=== PATIENT | male | born 1985 | race African-American/Black ===

== ENCOUNTER 2017-04-01 16:12 | Emergency (ER) | payer SELFPAY ==
[2017-04-01 16:24] VITALS: BP 126/76; PULSE 81; TEMP 98.3; BMI 25.0
[2017-04-01] MEDS ORDERED: NAPROXEN 250 MG TABLET (FP) PO ONE (16:50)
--- NOTE | 2017-04-01 16:53 | PDOC ---
History of Present Illness - General Chief Complaint: Back Pain Stated Complaint: BACK PAIN Time Seen by Provider: 04/01/17 16:32 - History of Present Illness Initial Comments: 04/01/17 16:47 CHIEF COMPLAINT: back pain HISTORY OF PRESENT ILLNESS: 32 yo M with no PMH presents to [facility] with "back spasm." Patient reports that 2 days ago he woke up and felt muscle "stiffness" to his lower back and "couldn't really move very well." He denies any loss of bowel or bladder function, loss of sensation to extremities, or any other symptoms. 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 SURGICAL HISTORY: Denies ALLERGIES: No known drug allergies REVIEW OF SYSTEMS General/Constitutional: Denies fever or chills. Denies weakness, weight change. HEENT: Denies change in vision. Denies ear pain or discharge. Denies sore throat. Cardiovascular: Denies chest pain or shortness of breath. Respiratory: Denies cough, wheezing, or hemoptysis. Gastrointestinal: Denies nausea, vomiting, diarrhea or constipation. Denies rectal bleeding. Genitourinary: Denies dysuria, frequency, or change in urination. Musculoskeletal: "My back feels stiff." PHYSICAL EXAM General Appearance: Well-appearing, appropriately dressed. No apparent distress. HEENT: EOMI, PERRLA. No photophobia, scleral icterus. Respiratory/Chest: Lungs CTAB. Cardiovascular: RRR. S1, S2. Gastrointestinal/Abdominal: Normal bowel sounds. Abdomen soft, non-distended. No tenderness or rebound tenderness. No organomegaly, pulsatile mass, guarding , hernia, hepatomegaly, splenomegaly. Musculoskeletal/Extremities: Palpable muscle spasm to b/l low back. No midline tenderness to thoracic or lumbar spine. Normal inspection. FROM of all extremities, normal capillary refill. Pelvis Stable. No CVA tenderness. No tenderness to extremities, pedal edema, swelling, erythema or deformity. Integumentary: Appropriate color, dry, warm. No cyanosis, erythema, jaundice or rash Neurologic: data collection interviewer II-XII intact. Fully oriented, alert. Appropriate mood/affect. Motor strength 5/5. No appreciable EOM palsy, facial droop or sensory deficit. Past History - Past Medical History Allergies/Adverse Reactions: Allergies Allergy/AdvReac Type Severity Reaction Status Date / Time No Known Allergies Allergy Verified 04/01/17 16:15 Home Medications: Ambulatory Orders Ibuprofen [Motrin] 800 mg PO TID #20 tablet 06/02/15 Acetaminophen [Tylenol] 650 mg PO PRN 06/03/15 Cyclobenzaprine HCl 7.5 mg PO HS PRN #7 tablet 04/01/17 Naproxen [Naprosyn -] 250 mg PO BID #14 tablet 04/01/17 Other medical history: denies - Immunization History Immunization Up to Date: Yes - Suicide/Smoking/Psychosocial Hx Smoking History: Never smoked Have you smoked in the past 12 months: No Information on smoking cessation initiated: No Hx Alcohol Use: No Drug/Substance Use Hx: No Substance Use Type: None *Physical Exam - Vital Signs Last Vital Signs Temp Pulse Resp BP Pulse Ox 98.3 F 81 19 126/76 99 04/01/17 16:13 04/01/17 16:13 04/01/17 16:13 04/01/17 16:13 04/01/17 16:13 Medical Decision Making - Medical Decision Making 04/01/17 16:50 32 yo M with no PMH [facility] "[facility]." Patient refused Toradol. *DC/Admit/Observation/Transfer Diagnosis at time of Disposition: Muscle strain - Discharge Dispostion Disposition: HOME Condition at time of disposition: Stable Admit: No - Prescriptions Prescriptions: Cyclobenzaprine HCl 7.5 mg PO HS PRN #7 tablet PRN Reason: Muscle Spasms Naproxen [Naprosyn -] 250 mg PO BID #14 tablet - Referrals Referrals: Ariel La MD [Staff Physician] - - Patient Instructions Printed Discharge Instructions: DI for Muscle Strain, DI for Low Back Pain Additional Instructions: Take medications as prescribed. As discussed, do not drive, drink alcohol, or operate machinery while taking cyclobenzaprine. If your pain persists for more than 3-5 days, please follow up with orthopedics for further evaluation. If you develop any loss of sensation to your legs, loss of bowel or bladder function, or any new or worsening symptoms, please return to the ER.
[2017-04-01] MEDS ORDERED: NAPROXEN 500 MG TABLET (FP) PO ONE (16:54)
[2017-04-01] MEDS ORDERED: NAPROXEN 500 MG TABLET (FP) ONE (16:54)
== END 2017-04-01 17:03 | disposition home or self-care (01) ==
LOC: JERFT 16:12
DX: S39.012A Strain of muscle, fascia and tendon of lower back, initial encounter (principal); X58.XXXA Exposure to other specified factors, initial encounter; Y93.89 Activity, other specified; Y92.9 Unspecified place or not applicable
CPT/HCPCS: 99281-25

== ENCOUNTER 2019-07-25 09:42 | Emergency (ER) | payer SELFPAY ==
[2019-07-25 09:49] VITALS: BP 122/73; PULSE 68; TEMP 98.1; BMI 25.8
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
== END 2019-07-25 10:08 | disposition home or self-care (01) ==
LOC: JERFT 09:42
DX: M62.830 Muscle spasm of back (principal); V43.52XA Car driver injured in collision with other type car in traffic accident, initial encounter; Y92.414 Local residential or business street as the place of occurrence of the external cause; Y93.89 Activity, other specified; Y99.8 Other external cause status
CPT/HCPCS: 99282-25